=== PATIENT | male | born 1970 | race Caucasian/White ===

== ENCOUNTER 2019-01-11 08:09 | Emergency (ER) | payer MEDICAID ==
[~2019-01-11] VITALS: Ht 182.9 cm; Wt 86.4 kg
[2019-01-11 08:10] VITALS: BP 137/89
[2019-01-11] MEDS ORDERED: AMPH20TA3 PO (08:25)
== END 2019-01-11 08:47 | disposition home or self-care (01) ==
LOC: ER 08:09
DX: F90.9 Attention-deficit hyperactivity disorder, unspecified type (principal); F12.90 Cannabis use, unspecified, uncomplicated; Z76.0 Encounter for issue of repeat prescription
CPT/HCPCS: 99283